=== PATIENT | male | born 1980 | race American Indian/Alaskan Native ===

== ENCOUNTER → 2025-01-25 | Outpatient (CLI) | payer OTHER, SELFPAY ==
--- NOTE | 2025-01-25 07:45 | XR_ITS ---
Examination: MRI lumbar spine without contrast Date and time of exam: January 25, 2025 0936 hours INDICATIONS: Lower back pain months. TECHNIQUE: Multiple MRI axial sagittal images lumbar spine FINDINGS: Adequate alignment lumbar vertebral bodies on the lateral view Mild disc narrowing L4-L5 No lumbar fracture Normal marrow signal lumbar vertebral bodies No spondylolisthesis L5-S1 no disc protrusion L4-L5 5 mm central lumbar disc bulge L3-L4 3 mm central lumbar disc bulge L2-L3 no disc protrusion L1-L2 no disc protrusion Impression: L4-L5 5 mm central lumbar disc bulge L3-L4 3 mm central lumbar disc bulge
== END | disposition home or self-care (01) ==
LOC: SMRI 07:44
PROVIDERS: PCP Family Medicine; Referring Provider Family Medicine; Visit Provider Family Medicine
DX: M51.360 Other intervertebral disc degeneration, lumbar region with discogenic back pain only (principal)
CPT/HCPCS: 72148